=== PATIENT | female | born 1975 | race Hispanic/Latino ===

== ENCOUNTER 2025-04-09 11:57 | Emergency (ER) | payer BC, OTHER ==
[~2025-04-09] VITALS: Ht 167.6 cm; Wt 110.2 kg
[2025-04-09 12:26] LABS: IMMATURE GRANULOCYTE ABSOLUTE 0.02 K/uL (0-1); NUCLEATED RED BLOOD CELLS 0.0 % (0.0-0.19); PLATELET COUNT (AUTO) 401 K/uL (130-400); RED BLOOD CELL COUNT(AUTO) 4.91 MIL/uL (4.00-5.50); RED CELL DISTRIBUTION WIDTH 18.1 % (11.0-15.5); WHITE BLOOD COUNT (AUTO) 7.7 K/uL (4.8-10.8)
[2025-04-09 12:36] LABS: CREATININE 0.6 mg/dL (0.5-1.0); GLOMERULAR FILTR. RATE CALC 110.0 mL/min (>90); GLUCOSE,RANDOM 102.0 mg/dL (70-105); SODIUM SERUM 138.0 mmol/L (136-145); UREA NITROGEN, BLOOD 10.0 mg/dL (7-18)
[2025-04-09] MEDS: 0.9%NACL 1000ML 1,000 ML IV STA (12:38)
[2025-04-09] MEDS: FAMOTIDINE 20MG VIAL IV STA (12:39)
[2025-04-09 12:41] LABS: ASPARTATE AMINOTRANSFERASE 16.0 U/L (10-37); TOTAL PROTEIN, SERUM 7.6 g/dL (6.0-8.3)
--- NOTE | 2025-04-09 14:17 | HMCIMG ---
EXAM: US Abdomen Limited, Right Upper Quadrant. CLINICAL HISTORY: 49 year old female with right upper quadrant pain. TECHNIQUE: Real-time ultrasound of the right upper quadrant with image documentation. COMPARISON: None provided. FINDINGS: LIVER: Measures approximately 19.0 cm in length. Echotexture is increased, consistent with hepatic steatosis (fatty liver). No focal hepatic lesions identified. GALLBLADDER: Gallbladder is distended, measuring approximately 12.0 cm. Gallbladder wall thickness is within normal limits at 3 mm. A non-mobile echogenic focus with posterior acoustic shadowing is noted in the gallbladder neck, consistent with a gallstone, measuring approximately 2.7 cm. No pericholecystic fluid or sonographic Bansal???s sign is noted. COMMON BILE DUCT: Measures 5 mm, within normal limits for age. PANCREAS: Visualized portions are within normal limits (WNL). No focal lesions or ductal dilatation. No sonographic evidence of acute pancreatitis. RIGHT KIDNEY: Measures 11.2 x 4.9 x 4.9 cm. Corticomedullary differentiation is preserved. No evidence of hydronephrosis or nephrolithiasis. No sonographic evidence of renal abnormality. IMPRESSION: 1. Hepatic steatosis (fatty liver). 2. Distended gallbladder with a large non-mobile gallstone in the neck (2.7 cm). 3. Common bile duct within normal limits. 4. No sonographic evidence of acute pancreatitis or renal abnormality. /[place]
[2025-04-09] MEDS ORDERED: KETO10TA2 PO (15:06)
[2025-04-09] MEDS ORDERED: ONDA-243 PO (15:06)
--- NOTE | 2025-04-09 15:07 | ERN ---
ED Note History of Present Illness Stated Complaint: RUQ PAIN Chief Complaint: Abdominal Pain Time Seen by MD: 11:59 Time Seen by Midlevel: 12:05 Dictation: 49-year-old female coming in with complaints of epigastric pain radiating to her mid back after eating spaghetti last night. Patient states he has a history of gallstones and gets flare-ups depending on food that she eats. States she threw up a few times during the night. Denies having any fever or diarrhea. Allergies: Coded Allergies: No Known Allergies (Unverified Allergy, Unknown, 04/09/25) Past Medical History Past Medical History: Other Additional Past Medical Hx: SKIN DISEASE Surgical History: LMP: Mar 19, 2025 Review of System Dictation Constitutional: Negative for fever,chills, and weight loss Eyes: Negative for injury, pain,redness, and discharge ENT: Negative for injury,pain or swelling Cardiovascular: Negative for chest pain, palpitations, and edema Respiratory: Negative for shortness of breath, cough, and wheezing, Abdomen/GI: Epigastric pain with nausea and vomiting Back: Negative for injury and pain : Negative for injury, bleeding and discharge MS/Extremity: Negative for injury and deformity Skin: Negative for rash, and discoloration Neuro: Negative for headache, weakness, numbness, tingling, and seizure Psych: Negative for suicide ideation, homicidal ideation, and hallucinations Review of Systems: was completed Initial Vital Sign VS Vital Signs Date Time Temp Pulse Resp B/P (MAP) Pulse Ox O2 Delivery O2 Flow Rate FiO2 04/09/25 11:58 97.5 57 16 140/66 100 Room Air 0 04/09/25 12:48 21 Physical Exam Dictation General: awake, alert, NAD Head/Face: Normocephalic, atraumatic Eyes: PERRL, EOMI, vision at baseline ENT: oral cavity clear, TMs clear, no signs of infection Neck: Trachea midline, supple, no nuchal rigidity Cardiovascular: RRR, normal S1/S2, No MRGs, no JVD Respiratory: CTAB, no respiratory distress, No rales or wheezes Abdomen: Soft, non-tender, non-distended, normal bowel sounds, no guarding or rebound. Skin: Warm, dry, normal turgor, no rash MS/Extremity: Pulses equal, no cyanosis, neurovascular intact, FROM Neuro: COAx4, GCS 15, strength 5/5, CN 2-12 intact, normal cerebellar exam, normal gait, Psych: Normal behavior, mood, and affect normal Results (Laboratory/Radiology) Laboratory/Radiology Laboratory Tests Test 04/09/25 12:18 White Blood Count 7.7 K/uL (4.8-10.8) Red Blood Count 4.91 MIL/uL (4.00-5.50) Hemoglobin 10.8 g/dL (12.0-16.0) L Hematocrit 35.8 % (36-48) L Mean Corpuscular Volume 72.9 fL (79-99) L Mean Corpuscular Hemoglobin 22.0 pg (27.0-33.0) L Mean Corpuscular Hemoglobin Concent 30.2 g/dL (32.0-36.0) L Red Cell Distribution Width 18.1 % (11.0-15.5) H Platelet Count 401 K/uL (130-400) H Mean Platelet Volume 11.6 fL (7.5-10.5) H Immature Granulocyte % (Auto) 0.3 % (0-1) Neutrophils (%) (Auto) 76.7 % (40.0-77.0) Lymphocytes (%) (Auto) 13.6 % (21.0-51.0) L Monocytes (%) (Auto) 6.9 % (3.0-13.0) Eosinophils (%) (Auto) 1.3 % (0.0-8.0) Basophils (%) (Auto) 1.2 % (0.0-5.0) Neutrophils # (Auto) 5.9 K/uL (1.8-7.7) Lymphocytes # (Auto) 1.1 K/uL (1.0-4.8) Monocytes # (Auto) 0.5 K/uL (0.1-1.0) Eosinophils # (Auto) 0.10 K/uL (0.00-0.70) Basophils # (Auto) 0.09 K/uL (0.00-0.20) Absolute Immature Granulocyte (auto 0.02 K/uL (0-1) Nucleated Red Blood Cells 0.0 % (0.0-0.19) Red Blood Cell Morphology See comments Sodium Level 138 mmol/L (136-145) Potassium Level 3.6 mmol/L (3.5-5.1) Chloride Level 103 mmol/L (101-111) Carbon Dioxide Level 26 mmol/L (21-32) Blood Urea Nitrogen 10 mg/dL (7-18) Creatinine 0.6 mg/dL (0.5-1.0) Glomerular Filtration Rate Calc 110 mL/min (>90) Random Glucose 102 mg/dL (70-105) Total Calcium 8.8 mg/dL (8.5-10.1) Total Bilirubin 0.3 mg/dL (0.2-1.0) Direct Bilirubin 0.1 mg/dL (0.0-0.3) Aspartate Amino Transf (AST/SGOT) 16 U/L (10-37) Alanine Aminotransferase (ALT/SGPT) 28 U/L (12-78) Alkaline Phosphatase 81 U/L (50-136) Total Protein 7.6 g/dL (6.0-8.3) Albumin 3.6 g/dL (3.5-5.0) Lipase 49 U/L (16-77) Labs Reviewed?: Yes Ultrasound Comment: [place] [address] [place] [address] IMAGING REPORT Signed PATIENT: ASCENCION DUCKWORTH MR#: [id number] : 1975 SEX: F AGE: 49 LOCATION: [facility] ORDER 1203 STATUS: [facility] REPORT#: [id number] SERVICE 1202 REASON: ruq pain, hx of gallstones ORDERING PHYSICIAN: ANA CRISTINA RIVAS NP PROCEDURE: [id number] - US ABDOMINAL RUQ\LTD EXAM: US Abdomen Limited, Right Upper Quadrant. CLINICAL HISTORY: 49 year old female with right upper quadrant pain. TECHNIQUE: Real-time ultrasound of the right upper quadrant with image documentation. COMPARISON: None provided. FINDINGS: LIVER: Measures approximately 19.0 cm in length. Echotexture is increased, consistent with hepatic steatosis (fatty liver). No focal hepatic lesions identified. GALLBLADDER: Gallbladder is distended, measuring approximately 12.0 cm. Gallbladder wall thickness is within normal limits at 3 mm. A non-mobile echogenic focus with posterior acoustic shadowing is noted in the gallbladder neck, consistent with a gallstone, measuring approximately 2.7 cm. No pericholecystic fluid or sonographic Bansal???s sign is noted. COMMON BILE DUCT: Measures 5 mm, within normal limits for age. PANCREAS: Visualized portions are within normal limits (WNL). No focal lesions or ductal dilatation. No sonographic evidence of acute pancreatitis. RIGHT KIDNEY: Measures 11.2 x 4.9 x 4.9 cm. Corticomedullary differentiation is preserved. No evidence of hydronephrosis or nephrolithiasis. No sonographic evidence of renal abnormality. IMPRESSION: 1. Hepatic steatosis (fatty liver). 2. Distended gallbladder with a large non-mobile gallstone in the neck (2.7 cm). 3. Common bile duct within normal limits. 4. No sonographic evidence of acute pancreatitis or renal abnormality. /[place] DICTATED BY: AMEYA SANTAMARIA MD DATE: 04/09/251516 ELECTRONICALLY SIGNED BY: AMEYA SANTAMARIA MD DATE: 04/09/251516 ED Course ED Course Orders Procedure Category Date Status Time Cbc With Differential LAB 04/09/25 Complete 12:02 Basic Metabolic Panel LAB 04/09/25 Complete 12:02 Lipase LAB 04/09/25 Complete 12:02 Hepatic Function Panel LAB 04/09/25 Complete 12:02 Us Abdominal Ruq\Ltd US 04/09/25 Resulted 12:02 0.9%Nacl 1000ml (Ns PHA 04/09/25 Complete 1000ml) 12:02 Ondansetron 4mg Inj PHA 04/09/25 Complete (Zofran 4mg Inj) 12:02 Famotidine 20mg Vial PHA 04/09/25 Complete (Pepcid 20mg Vial) 12:02 Ketorolac PHA 04/09/25 Complete Tromethamine 15mg/Ml 12:02 Ceftriaxone 1g Vial PHA 04/09/25 Transmitted (Rocephine 1g Inj) 14:58 Morphine 2mg Syg PHA 04/09/25 Transmitted (Morphine 2mg Syg) 14:58 Current Medications Medications (Trade) Dose Ordered Sig/Jaky Route PRN Reason Start Time Stop Time Status Last Admin Dose Admin Famotidine (Pepcid 20mg Vial) 20 mg ONCE STAT IV 04/09/25 12:02 04/09/25 12:06 DC 04/09/25 12:39 Ketorolac Tromethamine (toRADol) 15 mg ONCE STAT IV 04/09/25 12:02 04/09/25 12:06 DC 04/09/25 12:39 Ondansetron HCl (zoFRAN 4MG INJ) 4 mg ONCE STAT IVP 04/09/25 12:02 04/09/25 12:06 DC 04/09/25 12:39 Sodium Chloride 1,000 ml @ 1,000 mls/hr Q1H STAT IV 04/09/25 12:02 04/09/25 13:01 DC 04/09/25 12:38 Vital Signs Date Time Temp Pulse Resp B/P (MAP) Pulse Ox O2 Delivery O2 Flow Rate FiO2 04/09/25 12:48 98.2 56 16 138/65 98 Room Air* 0 21 04/09/25 11:58 97.5 57 16 140/66 100 Room Air 0 Medical Decision Making MDM MDM: 49-year-old female coming in with complaints of epigastric pain radiating to her mid back after eating spaghetti last night. Patient states he has a history of gallstones and gets flare-ups depending on food that she eats. States she threw up a few times during the night. Denies having any fever or diarrhea. Blood work is unremarkable. No white count, no transaminitis. Ultrasound of the right upper quadrant shows distended gallbladder measuring 12 cm gallbladder wall thickening within normal range and a 2.7 cm gallbladder stone in the gallbladder neck, non mobile. No pericholecystic fluid or sonographic Bansal's sign. Spoke to surgeon on-call, Dr. Hauser, recommended if patient is comfortable and has not had any nausea and vomiting to give patient antibiotics here in the ER and sent him the information of the patient's so that his office we will follow up with the patient's for an outpatient appointment. Discussed with the family member and patient, patient agreed to follow up outpatient with . States after fluids and pain medication she feels better. However discussed signs and symptoms of when to return back to the emergency room. Patient verbalized understanding, answered all questions. Patient received fluids, pain medication antibiotics prior to discharge. Information was sent to Dr. Hauser. Differential diagnosis: Gastritis, pancreatitis, cholecystitis Rationale: Tests considered and ordered secondary to shared decision making include: Previous outside records reviewed: Old ER visits. Risk of complication and/or morbidity or mortality of patient management: None Medications-Per medication reconciliation Need for hospitalization: Patient does not meet criteria for hospitalization. Need for emergency major/minor surgery: No There are no social concerns with this patient. Prescription drug management Prescriptions will include symptomatic care Patient's prior external medical records from other ER visits were reviewed by me as indicated. Prior testing and results from previous visits were reviewed. Prior tests were taken into account with medical decision making and resource utilization, independent historian/historians were used to obtain complete medical history. I independently interpreted the test that were performed, results were reviewed by me and considered findings on radiology if ordered. Medical management and examination interpretation discussions were had by me with other qualified healthcare professionals as indicated for the patient's care. 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 Follow up with Dr. Blankenship in 1-2 days. They will get a hold of you but in case they do not get a hold living in the next couple of days please call their office. Referrals: SELF,REFERRAL (PCP) REGINO MUNOZ MD Time of Disposition: 15:05 I have reviewed the case, and I agree with, Diagnosis and Plan ANA CRISTINA RIVAS NP Apr 09, 2025 15:07
--- NOTE | 2025-04-09 15:19 | NUR ---
DEPART PEND MED EFFECT
[2025-04-09 15:33] VITALS: BP 138/65; PULSE 62; RESP 16; TEMP 98.3; O2SAT 98
== END 2025-04-09 15:36 | disposition home or self-care (01) ==
LOC: EDH 11:57
DX: K80.20 Calculus of gallbladder without cholecystitis without obstruction (principal); Z98.890 Other specified postprocedural states
CPT/HCPCS: 99284; 96374; 96375; 96361; 76705; 80076; 80048; 83690; 85025; 36415; J1885; J3490; J2270; J7030; J0696; J2405